=== PATIENT | female | born 1985 | race Asian ===

== ENCOUNTER 2017-10-07 20:29 | Emergency (ER) | payer OTHER ==
[~2017-10-07] VITALS: Ht 172.7 cm; Wt 125.2 kg
[~2017-10-07 20:29] MED LIST: AMLO2.5T PO; CABERGOLINE0.5 MG PO; CELEXA20 MG PO; DEXAMETHASON1 MG PO; DOXE25CA18 PO; LISI20TA31 PO; LYRICA300 MG PO; METF500T PO; METOPROLOL25 M1 PO
[2017-10-07 21:09] LABS: PLATELET COUNT 321 K/uL (152-353)
[2017-10-07 21:16] LABS: POTASSIUM 3.6 mmol/L (3.6-5.2); SODIUM 136 mmol/L (136-145)
[2017-10-07 22:25] VITALS: BP 124/84; TEMP 98.8
== END 2017-10-07 22:26 | disposition home or self-care (01) ==
LOC: ED 20:29
DX: G51.0 Bell's palsy (principal)
CPT/HCPCS: 36415; 80053; 85027; 99283

== ENCOUNTER 2017-12-14 19:29 | Emergency (ER) | payer OTHER ==
[~2017-12-14] VITALS: Ht 172.7 cm; Wt 119.3 kg
[2017-12-14 22:40] VITALS: BP 143/99; TEMP 98.6
== END 2017-12-14 22:45 | disposition home or self-care (01) ==
LOC: ED 19:29
DX: S80.02XA Contusion of left knee, initial encounter (principal); S93.601A Unspecified sprain of right foot, initial encounter; V43.52XA Car driver injured in collision with other type car in traffic accident, initial encounter; Y92.89 Other specified places as the place of occurrence of the external cause
CPT/HCPCS: 99283

== ENCOUNTER 2018-03-26 16:52 | Emergency (ER) | payer OTHER ==
[~2018-03-26] VITALS: Ht 172.7 cm; Wt 138.3 kg
[2018-03-26 18:05] LABS: PLATELET COUNT 356 K/uL (152-353)
[2018-03-26 18:22] LABS: POTASSIUM 3.5 mmol/L (3.6-5.2)
[2018-03-26 19:33] VITALS: BP 138/93; TEMP 98.5
== END 2018-03-26 19:50 | disposition home or self-care (01) ==
LOC: ED 16:52
DX: R53.1 Weakness (principal); Z98.890 Other specified postprocedural states
CPT/HCPCS: 80053; 81000; 85027; 99283

== ENCOUNTER 2019-01-15 13:24 | Outpatient (CLI) | payer OTHER | END 2019-01-15 22:41 | disposition home or self-care (01) | LOC: MRI 13:24 | DX: G43.701 Chronic migraine without aura, not intractable, with status migrainosus (principal) ==

== ENCOUNTER 2019-05-22 11:22 | Emergency (ER) | payer OTHER ==
[~2019-05-22] VITALS: Ht 175.3 cm; Wt 132.9 kg
[2019-05-22 12:08] LABS: PLATELET COUNT 245 K/uL (152-353)
[2019-05-22 12:16] LABS: POTASSIUM 3.3 mmol/L (3.6-5.2); SODIUM 138 mmol/L (136-145)
[2019-05-22 12:26] LABS: PARTIAL THROMBOPLASTIN TIME 22.3 SECONDS (24.5-33.6)
[2019-05-22 14:53] VITALS: BP 144/106; TEMP 98
== END 2019-05-22 15:06 | disposition home or self-care (01) ==
LOC: ED 11:22
PROVIDERS: Family Medicine
DX: R07.89 Other chest pain (principal); R22.2 Localized swelling, mass and lump, trunk; R06.02 Shortness of breath
CPT/HCPCS: 36415; 80053; 82550; 82553; 83880; 84484; 85027; 85379; 85610; 85730; 93005; 96374; 96375; 99284; J2270; Q9963

== ENCOUNTER 2019-10-01 22:03 | Emergency (ER) | payer OTHER ==
[~2019-10-01] VITALS: Ht 175.3 cm; Wt 134.3 kg
[2019-10-01 23:19] VITALS: BP 146/97; TEMP 98
== END 2019-10-01 23:23 | disposition home or self-care (01) ==
LOC: ED 22:03
DX: N39.0 Urinary tract infection, site not specified (principal); N76.0 Acute vaginitis
CPT/HCPCS: 81000; 87077; 87086; 87088; 87186; 87490; 87590; 96372; 99283; J0696

== ENCOUNTER 2019-11-25 11:21 | Emergency (ER) | payer OTHER ==
[~2019-11-25] VITALS: Ht 175.3 cm; Wt 134.3 kg
[2019-11-25 13:50] VITALS: BP 141/94; TEMP 97.6
== END 2019-11-25 13:50 | disposition home or self-care (01) ==
LOC: ED 11:21
DX: M43.6 Torticollis (principal); Z33.1 Pregnant state, incidental
CPT/HCPCS: 81000; 81025; 99283; J1885